=== PATIENT | male | born 1995 | race Caucasian/White ===

== ENCOUNTER 2017-02-12 08:35 | Emergency (ER) | payer OTHER ==
[~2017-02-12] VITALS: Ht 175.3 cm; Wt 68.5 kg
[2017-02-12 08:41] VITALS: Ht 175.3 cm; Wt 68.5 kg
[2017-02-12 09:16] LABS: ADD SCAN DIFF NO
[2017-02-12 09:23] LABS: BASOPHILS % 0.4 % (0.0-2.0); EOSINOPHILS # 0.3 10^3/ul (0.0-0.5); EOSINOPHILS % 4.5 % (0.0-7.0); HEMATOCRIT 45.7 % (42.0-52.0); HEMOGLOBIN 15.6 g/dl (14.0-18.0); LYMPHOCYTES # 2.5 10^3/ul (0.8-2.9); LYMPHOCYTES % 44.1 % (18.0-55.0); MEAN CORPUSCULAR HEMOGLOBIN 31.3 pg (29.0-33.0); MEAN CORPUSCULAR HGB CONC 34.1 g/dl (32.0-37.0); MEAN CORPUSCULAR VOLUME 91.8 fl (72.0-104.0); MEAN PLATELET VOLUME 9.2 fl (7.4-10.4); MONOCYTE # 0.4 10^3/ul (0.3-0.9); MONOCYTES % 6.7 % (0.0-13.0); NEUTROPHIL # 2.5 10^3/ul (1.6-7.5); NEUTROPHILS % 44.1 % (30.0-74.0); PLATELET COUNT 271 10^3/UL (140-415); RED BLOOD COUNT 4.98 10^6/ul (4.70-6.10); RED CELL DISTRIBUTION WIDTH 12.9 % (11.5-14.5); WHITE BLOOD COUNT 5.6 10^3/ul (4.8-10.8)
--- NOTE | 2017-02-12 09:47 | RADRPT ---
PROCEDURE: Lumbar spine series CLINICAL INDICATION: Low back pain TECHNIQUE: AP and lateral views lumbar spine were obtained COMPARISON: None FINDINGS: There is no evidence of fractures or subluxations. The bony mineralization is normal. No focal bon y blastic or lytic lesions. The posterior elements appear intact. IMPRESSION: No evidence of fractures or subluxations. RPTAT:AAJJ Physician Felicity Date Time Electronically viewed and signed by Bertha Gerardo Physician on 02/12/2017 09:46 /
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
[2017-02-12 10:01] LABS: ADD UMIC NO; UR BILIRUBIN (Dip) NEGATIVE (NEGATIVE); UR BLOOD (Dip) NEGATIVE (NEGATIVE); UR CLARITY CLEAR (CLEAR); UR COLOR LT. YELLOW (YELLOW); UR GLUCOSE (Dip) NEGATIVE (NEGATIVE); UR KETONES (Dip) NEGATIVE (NEGATIVE); UR LEUKOCYTE ESTERASE (Dip) NEGATIVE (NEGATIVE); UR NITRITE (Dip) NEGATIVE (NEGATIVE); UR TOTAL PROTEIN (Dip) NEGATIVE (NEGATIVE); UR UROBILINOGEN (Dip) 0.2 E.U./dL (0.1-1.0)
[2017-02-12 10:09] LABS: ALBUMIN 4.5 g/dl (3.3-4.9); ALBUMIN/GLOBULIN RATIO 1.55; BILIRUBIN,INDIRECT 0.3 mg/dl (0-1.1); BILIRUBIN,TOTAL 0.3 mg/dl (0.2-1.3); CREATININE 0.82 mg/dl (0.61-1.24); MAGNESIUM 2.2 mg/dl (1.7-2.5); POTASSIUM 3.8 mmol/L (3.5-5.1); TOTAL PROTEIN 7.4 g/dl (6.1-8.1)
[2017-02-12 10:31] LABS: BARBITURATES Negative (NEGATIVE)
[2017-02-12 10:34] LABS: BENZODIAZEPINES Negative (NEGATIVE); OPIATES Negative (NEGATIVE)
[2017-02-12 10:36] LABS: COCAINE Positive (NEGATIVE)
[2017-02-12 10:37] LABS: CANNABINOIDS Positive (NEGATIVE)
[2017-02-12 10:40] LABS: THYROID STIMULATING HORMONE 4.07 MIU/L (0.465-4.680)
[2017-02-12 11:24] VITALS: BP 129/69; PULSE 72; RESP 19; TEMP 98.2
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
[2017-05-01] MEDS ORDERED: DICY10CA60 PO (05:54)
[2017-05-01] MEDS ORDERED: ONDA4TAB14 PO (05:54)
== END 2017-02-12 11:24 | disposition home or self-care (01) ==
LOC: FTE 08:35
DX: F14.10 Cocaine abuse, uncomplicated (principal); R42 Dizziness and giddiness; R20.2 Paresthesia of skin; J45.909 Unspecified asthma, uncomplicated
CPT/HCPCS: 36415; 70450; 72100; 80053; 80307; 81003; 83690; 83735; 84439; 84443; 85025; 93005

== ENCOUNTER 2017-04-30 23:40 | Emergency (ER) | END 2017-05-01 06:13 | disposition home or self-care (01) | DX: R10.9 Unspecified abdominal pain (principal); R11.2 Nausea with vomiting, unspecified; R40.2142 Coma scale, eyes open, spontaneous, at arrival to emergency department; R40.2252 Coma scale, best verbal response, oriented, at arrival to emergency department; R40.2362 Coma scale, best motor response, obeys commands, at arrival to emergency department | CPT/HCPCS: 36415; 74176; 80053; 81001; 83690; 85025; 96374; 96375; J2270; J2405; J7030; Z7502 ==